=== PATIENT | female | born 1945 | race Caucasian/White ===

== ENCOUNTER 2017-08-16 08:35 | Emergency (ER) | payer SELFPAY ==
--- NOTE | 2017-08-16 09:22 | ERD ---
ER Documentation Chief Complaint Chief Complaint SOB HPI This is a 72-year-old female with a past medical history of asthma/COPD who is presenting with shortness of breath. The patient states that she has had several days of cough and congestion. She felt like she could not breathe on her own this morning and called an ambulance to have her transferred to [place]. The patient feels that she is having a COPD exacerbation and has had wheezing at home. Her medications at home were not helping this morning. She requested that the ambulance transfer her to [place], but this was the closest facility and [facility] was not available for ambulance transport at this time. The patient does not want any treatment here and would like to leave AGAINST MEDICAL ADVICE. The patient has someone here who reports that she can take her to [place]. The patient denies feeling sick recently. The patient denies fever or chills. The patient has had no headache or vision changes. The patient does not endorse neck or back pain. The patient denies lightheadedness or dizziness. The patient has had no chest pain. The patient denies nausea or vomiting. The patient denies abdominal pain or changes to bowel movements or urination. The patient has had no focal deficits. The patient has had no weakness or numbness or tingling to the face or extremities. ROS All systems reviewed and are negative except as per history of present illness. PMhx/Soc Limited secondary to patient noncompliance Hx Neurological Disorder: No Hx Respiratory Disorders: Yes (COPD/Asthma) Hx Cardiac Disorders: No Hx Psychiatric Problems: No Hx Miscellaneous Medical Probl: No Hx Alcohol Use: No Hx Substance Use: No Hx Tobacco Use: No FmHx Family History: No coronary disease, No diabetes Physical Exam Physical Exam Const: No apparent distress, well-developed, well-nourished Head: Normocephalic, Atraumatic Eyes: Normal Conjunctiva. Extraocular movements intact. Pupils equal, round and reactive to light ENT: Normal External Ears, Nose. Dry mucous membranes Neck: Full range of motion. No meningismus. Resp: Bilateral faint wheezing, bibasilar rales, No rhonchi Cardio: Regular rate and rhythm. No murmurs, rubs or gallops Abd: Soft, non tender, non distended. Normal bowel sounds Skin: No petechiae or rashes Back: No midline tenderness. No CVA tenderness Ext: No cyanosis, or edema Neur: Awake and alert, oriented 4. Cranial nerves intact. No facial droop. Normal strength, sensation and coordination. Psych: Normal Mood and Affect Procedures/MDM MDM The patient's presentation warrants further investigation. The patient denies chest pain, and I have decreased suspicion for acute coronary syndrome. However , this is an elderly female presenting with shortness of breath. Acute coronary syndrome cannot be fully ruled out without a cardiac workup. The patient's symptoms may be consistent with COPD versus CHF. I cannot fully assess the patient without completing a workup. The patient does not want to stay for any workup or treatment. The patient was offered nebulized treatments to help with her breathing, but the patient refused this as well. The patient refused vital signs to be performed in the emergency department also. The patient understands the risks of leaving the hospital, which include hemodynamic collapse, permanent disability or potentially . Despite these risks, the patient would like to leave AGAINST MEDICAL ADVICE presently. She states that she will go directly to [place] after leaving this hospital. The patient understands that she may return to the emergency department at any time, and we would be happy to reassess her. Disclaimer: Inadvertent spelling and grammatical errors are likely due to EHR/ dictation software use and do not reflect on the overall quality of patient care. Note that the electronic time recorded on this note does not necessarily reflect the actual time of the patient encounter. Departure Diagnosis: Primary Impression: Shortness of breath Additional Impression: Left against medical advice Condition: NINA Tobias MD Aug 16, 2017 09:22
== END 2017-08-16 10:06 | disposition left against medical advice (07) ==
LOC: E/R 08:35
DX: R06.02 Shortness of breath (principal); J44.9 Chronic obstructive pulmonary disease, unspecified; J45.909 Unspecified asthma, uncomplicated
CPT/HCPCS: 99282

== ENCOUNTER 2018-03-27 12:06 | Emergency (ER) | END 2018-03-27 19:30 | disposition short-term general hospital (02) ==